=== PATIENT | female | born 1990 | race Caucasian/White ===

== ENCOUNTER 2020-04-21 17:44 | Emergency (ER) | payer OTHER ==
[~2020-04-21] VITALS: Ht 165.1 cm; Wt 104.3 kg
[2020-04-21] MEDS ORDERED: HYDROCHLOROTH12.5 MG PO (20:07)
[2020-04-21] MEDS ORDERED: DOXYCYCLINE HY100 MG PO (21:08)
== END 2020-04-21 21:38 | disposition home or self-care (01) ==
LOC: ED 17:44
DX: S81.851A Open bite, right lower leg, initial encounter (principal); W54.0XXA Bitten by dog, initial encounter; F17.200 Nicotine dependence, unspecified, uncomplicated; Z88.0 Allergy status to penicillin; Z88.5 Allergy status to narcotic agent; Z79.899 Other long term (current) drug therapy
CPT/HCPCS: 90471; 90715; 99283-25

== ENCOUNTER 2021-03-28 21:33 | Emergency (ER) | payer SELFPAY ==
[~2021-03-28] VITALS: Ht 165.1 cm; Wt 101.6 kg
[~2021-03-28 21:33] MED LIST: DOXYCYCLINE HY100 MG PO; HYDROCHLOROTH12.5 MG PO
[2021-03-28] MEDS ORDERED: TRAMADOL HCL50 MG PO (22:41)
== END 2021-03-28 22:58 | disposition home or self-care (01) ==
LOC: ED 21:33
DX: J01.90 Acute sinusitis, unspecified (principal); G43.909 Migraine, unspecified, not intractable, without status migrainosus; I10 Essential (primary) hypertension; F17.200 Nicotine dependence, unspecified, uncomplicated; Z88.8 Allergy status to other drugs, medicaments and biological substances; Z88.5 Allergy status to narcotic agent; Z88.0 Allergy status to penicillin; Z79.899 Other long term (current) drug therapy
CPT/HCPCS: 99283